=== PATIENT | male | born 1945 | race Caucasian/White ===

== ENCOUNTER 2021-01-24 13:54 | Emergency (ER) | payer MEDICARE ==
[~2021-01-24 13:54] MED LIST: ALDACTONE25 MG PO; CIPRO500 MG PO; CORDARONE 200M200 MG PO; COREG6.25 MG PO; DIOVAN40 MG PO; ECOTRIN81 MG PO; ELIQUIS2.5 MG PO; FEOSOL325 MG PO; FLAGYL500 MG PO; FLOMAX0.4 MG PO; HYZAAR 100-251 EACH PO; K-DUR TAB 10 M10 MEQ PO; LASIX40 MG PO; LIPITOR40 MG PO; PLAVIX 75 MG TA75 MG PO; PROTONIX40 MG PO; SINGULAIR10 MG PO; SUCRALFATE1 GM PO; ZOLOFT25 MG PO; ZYRTEC10 M3 PO
[2021-01-24 15:32] LABS: HEMOGLOBIN 14.1 gm/dl (14.0-17.5); RED BLOOD COUNT 4.83 M/UL (4.20-5.50); WHITE BLOOD COUNT 11.1 K/UL (4.5-11.0)
[2021-01-24 16:14] LABS: BUN/CREATININE RATIO 17 (0-10)
[2021-01-24] MEDS ORDERED: LASIX TAB 20 MG20 MG PO (17:25)
== END 2021-01-24 17:36 | disposition home or self-care (01) ==
LOC: ER1 13:54
PROVIDERS: Emergency Medicine
DX: I11.0 Hypertensive heart disease with heart failure (principal); I50.40 Unspecified combined systolic (congestive) and diastolic (congestive) heart failure; J44.9 Chronic obstructive pulmonary disease, unspecified; I25.2 Old myocardial infarction; E11.9 Type 2 diabetes mellitus without complications; F17.290 Nicotine dependence, other tobacco product, uncomplicated; Z95.1 Presence of aortocoronary bypass graft; Z88.0 Allergy status to penicillin
CPT/HCPCS: 36600; 71045; 80053; 82550; 82553; 82803; 83874; 83880; 84484; 85025; 93005; 96374; 99285; J1940